=== PATIENT | female | born 1990 | race Caucasian/White ===

== ENCOUNTER 2016-05-13 01:39 | Emergency (ER) | payer SELFPAY ==
[2016-05-13] MEDS ORDERED: SULFAMETHOXAZOLE 800 MG/TRIMETHOPRIM 160 MG TABLET ONE (03:16)
== END 2016-05-13 03:32 | disposition home or self-care (01) ==
LOC: ED 01:39
DX: L03.211 Cellulitis of face (principal); F17.210 Nicotine dependence, cigarettes, uncomplicated

== ENCOUNTER 2016-07-13 14:06 | Emergency (ER) | payer OTHER | END 2016-07-13 15:31 | disposition home or self-care (01) | LOC: ED 14:06 | DX: L02.31 Cutaneous abscess of buttock (principal); B96.89 Other specified bacterial agents as the cause of diseases classified elsewhere; J45.909 Unspecified asthma, uncomplicated; F17.200 Nicotine dependence, unspecified, uncomplicated ==